=== PATIENT | male | born 2005 | race Caucasian/White ===

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

== ENCOUNTER 2024-01-16 15:01 | Emergency (ER) | payer OTHER ==
[~2024-01-16] VITALS: Ht 188 cm; Wt 90.7 kg
[2024-01-16 15:08] VITALS: BP 135/97
[2024-01-16] MEDS ORDERED: Ondansetron 4 MG SoluTab SL ONE (15:20)
[2024-01-16] MEDS ORDERED: Ondansetron HCl 2 MG / ML 2ML Vial IV ONE (15:30)
[2024-01-16] MEDS ORDERED: NS 1,000 ML IV SCH (15:30)
[2024-01-16] MEDS ORDERED: Ketorolac Tromethamine 30mg Vial IV ONE (15:35)
== END 2024-01-16 16:25 | disposition home or self-care (01) ==
LOC: ER 15:01
DX: T67.5XXA Heat exhaustion, unspecified, initial encounter (principal)
CPT/HCPCS: 96361; 96374; 96375; 99283-25; A9270; J1885; J2405; J7030

== ENCOUNTER 2024-09-05 19:53 | Emergency (ER) | payer OTHER | END 2024-09-05 20:16 | disposition left against medical advice (07) | LOC: ER 19:53 | DX: R11.2 Nausea with vomiting, unspecified (principal); R19.7 Diarrhea, unspecified; R51.9 Headache, unspecified; Z53.21 Procedure and treatment not carried out due to patient leaving prior to being seen by health care provider ==

== ENCOUNTER 2024-10-07 18:59 | Emergency (ER) | payer OTHER ==
[~2024-10-07] VITALS: Ht 188 cm; Wt 90.7 kg
[2024-10-07 19:52] VITALS: BP 143/84
[2024-10-07] MEDS ORDERED: Diazepam 2 MG Tab PO ONE (20:00)
[2024-10-07] MEDS ORDERED: DIAZ2 PO (20:00)
== END 2024-10-07 20:08 | disposition home or self-care (01) ==
LOC: ER 18:59
DX: S22.058A Other fracture of T5-T6 vertebra, initial encounter for closed fracture (principal); Z59.89 Other problems related to housing and economic circumstances; V86.96XA Unspecified occupant of dirt bike or motor/cross bike injured in nontraffic accident, initial encounter
CPT/HCPCS: 99282; A9270

== ENCOUNTER 2024-12-25 05:16 | Emergency (ER) | payer OTHER ==
[~2024-12-25] VITALS: Ht 188 cm; Wt 90.7 kg
[~2024-12-25 05:16] MED LIST changes: +DIAZ2 PO
[2024-12-25 06:00] VITALS: BP 127/80
== END 2024-12-25 06:52 | disposition home or self-care (01) ==
LOC: ER 05:16
DX: G43.909 Migraine, unspecified, not intractable, without status migrainosus (principal); Z53.21 Procedure and treatment not carried out due to patient leaving prior to being seen by health care provider
CPT/HCPCS: 99281